=== PATIENT | male | born 1975 | race Hispanic/Latino ===

== ENCOUNTER 2017-02-05 21:42 | Emergency (ER) | payer SELFPAY ==
[~2017-02-05 21:42] MED LIST: ISOVUE-370 76%-LOCM 1 ML ONE
[2017-02-05] MEDS ORDERED: HYDROmorphone 0.5 MG/0.5 ML SYRINGE ONE (22:15)
[2017-02-05 22:17] LABS: #Basophils 0.1 thou/uL (0.0-0.2); #Eosinphils 0.2 thou/uL (0.0-0.7); #Lymphocytes 3.8 thou/uL (1.20-3.40); #Monocytes 0.8 thou/uL (0.11-0.59); #Neutrophils 5.6 thou/uL (1.40-6.50); %Basophils 0.8 % (0.0-1.0); %Eosinophils 2.1 % (0.0-10.0); %Lymphocytes 35.7 % (21.0-51.0); Hematocrit 46.5 % (42.0-52.0); Mean Platelet Volume 7.2 fL (7.4-10.4); Red Blood Cell (RBC) Count 4.95 mill/uL (4.70-6.10); White Blood Cell (WBC) Count 10.5 thou/uL (4.8-10.8)
[2017-02-05 22:20] LABS: Bilirubin Negative (Negative); Blood, Urine Negative (Negative); Glucose, Urine (Dipstick) Negative (Negative); Ketone, Urine Negative (Negative); Nitrite Negative (Negative); Protein, Urine (Dipstick) Negative (Neg-Trace); Urobilinogen 0.2 mg/dL (0.2-1.0)
[2017-02-05 22:38] LABS: ALT (SGPT) 28 U/L (8-55); AST (SGOT) 26 U/L (5-34); Alkaline Phosphatase 103 U/L (40-150); Anion Gap 12 mmol/L (10-20); BUN (Urea Nitrogen) 8 mg/dL (8.9-20.6); Bilirubin, Total 0.3 mg/dL (0.2-1.2); Calc. Creatinine Clearance 0 mL/min (70-130); Calcium 9.8 mg/dL (7.8-10.44); Carbon Dioxide 26 mmol/L (22-29); Chloride 103 mmol/L (98-107); Estimated GFR-MDRD Greater than 90; Globulin 3.1 g/dL (2.4-3.5); Lipase 28 U/L (8-78); Magnesium 2.6 mg/dL (1.6-2.6); Protein, Total 7.6 g/dL (6.0-8.3)
[2017-02-05 22:46] LABS: Acetaminophen Less than 6.0 mcg/mL (10.0-30.0); Salicylate Less than 8.0 mg/dL (15.0-30.0)
--- NOTE | 2017-02-05 22:50 | CT ---
CT ABDOMEN AND PELVIS WITH CONTRAST: Date: 02/05/17 HISTORY: Pancreatitis. COMPARISON: CT abdomen and pelvis with contrast dated 07/21/12. FINDINGS: Lung bases are clear. No pericardial effusion. There are a few calcifications of the pancreatic tail. Atrophy of the pancreatic tail is similar. No peripancreatic stranding. The liver, gallbladder, spleen, and kidneys are unremarkable. Too small to characterize hypodensity i nterpolar left kidney. No dilated loops of large or small bowel. The appendix is visualized and is normal. Aorta is nonaneur ysmal. Skeleton is unremarkable. IMPRESSION: 1. No findings to suggest pancreatitis. 2. No acute inflammatory process in abdomen or pelvis. 3. Normal appendix. 4. Calcifications of pancreatic tail with mild peripheral atrophy are similar, likely sequela of old episodes of pancreatitis. POS: [facility]
[2017-02-06] MEDS ORDERED: HYDROmorphone 0.5 MG/0.5 ML SYRINGE ONE (00:06)
== END 2017-02-06 00:15 | disposition home or self-care (01) ==
LOC: ERS 21:42
DX: K86.1 Other chronic pancreatitis (principal); F31.9 Bipolar disorder, unspecified; F41.9 Anxiety disorder, unspecified; F17.210 Nicotine dependence, cigarettes, uncomplicated; G47.00 Insomnia, unspecified; I10 Essential (primary) hypertension; Z79.899 Other long term (current) drug therapy
CPT/HCPCS: 36415; 74177; 80053; 80307; 81003; 82248; 83690; 83735; 85025; 96361; 96374; 96376; 99406; J1170

== ENCOUNTER 2017-03-15 11:15 | Emergency (ER) | payer SELFPAY ==
[2017-03-15 11:43] LABS: #Basophils 0.1 thou/uL (0.0-0.2); #Eosinphils 0.1 thou/uL (0.0-0.7); #Lymphocytes 2.2 thou/uL (1.20-3.40); #Monocytes 0.6 thou/uL (0.11-0.59); %Basophils 0.5 % (0.0-1.0); %Eosinophils 0.8 % (0.0-10.0); %Lymphocytes 22.1 % (21.0-51.0); %Monocytes 6.2 % (0.0-10.0); Hematocrit 48.4 % (42.0-52.0); Mean Platelet Volume 6.7 fL (7.4-10.4); Red Blood Cell (RBC) Count 5.07 mill/uL (4.70-6.10); White Blood Cell (WBC) Count 9.9 thou/uL (4.8-10.8)
[2017-03-15 11:59] LABS: Acetaminophen Less than 6.0 mcg/mL (10.0-30.0); Salicylate Less than 8.0 mg/dL (15.0-30.0)
[2017-03-15 12:01] LABS: ALT (SGPT) 16 U/L (8-55); AST (SGOT) 19 U/L (5-34); Alkaline Phosphatase 100 U/L (40-150); Anion Gap 16 mmol/L (10-20); BUN (Urea Nitrogen) 6 mg/dL (8.9-20.6); Bilirubin, Total 0.7 mg/dL (0.2-1.2); Calc. Creatinine Clearance 0 mL/min (70-130); Calcium 9.7 mg/dL (7.8-10.44); Carbon Dioxide 23 mmol/L (22-29); Chloride 103 mmol/L (98-107); Estimated GFR-MDRD Greater than 90; Protein, Total 7.4 g/dL (6.0-8.3)
[2017-03-15 12:07] LABS: Bilirubin Negative (Negative); Blood, Urine Negative (Negative); Glucose, Urine (Dipstick) Negative (Negative); Ketone, Urine 15 mg/dL (Negative); Nitrite Negative (Negative); Protein, Urine (Dipstick) Negative (Neg-Trace)
[2017-03-15 12:18] LABS: Amphetamine Not Detected (NotDetected); Methadone Not Detected (NotDetected); Methamphetamine Not Detected (NotDetected)
[2017-03-15] MEDS ORDERED: Lorazepam 1 MG TAB ONE (13:04)
[2017-03-15] MEDS ORDERED: cloNIDine 0.1 MG TAB ONE (13:04)
[2017-03-15] MEDS ORDERED: Lisinopril 10 MG TAB ONE ×3 (13:45→14:20)
[2017-03-15] MEDS ORDERED: Ondansetron HCl/PF 4 MG/2 ML Vial ONE (17:39)
[2017-03-15] MEDS ORDERED: Pantoprazole 40 MG VIAL ONE (17:39)
[2017-03-15] MEDS ORDERED: traZODone HCl 50 MG TAB PO SCH (21:00)
[2017-03-15] MEDS ORDERED: Bupropion 150 MG SR TAB PO SCH (21:00)
== END 2017-03-15 17:55 ==
LOC: ERS 11:15
DX: R45.851 Suicidal ideations (principal); I10 Essential (primary) hypertension; F41.9 Anxiety disorder, unspecified; F31.9 Bipolar disorder, unspecified; F17.210 Nicotine dependence, cigarettes, uncomplicated
CPT/HCPCS: 36415; 80053; 80306; 80307; 81003; 84443; 85025; 99285; C9113; J2405

== ENCOUNTER 2017-08-24 14:22 | Emergency (ER) | payer SELFPAY ==
[2017-08-24] MEDS ORDERED: Labetalol HCl 100 MG/20 ML VIAL ONE (16:52)
[2017-08-24 17:06] LABS: #Basophils 0.1 thou/uL (0.0-0.2); #Eosinphils 0.1 thou/uL (0.0-0.7); #Lymphocytes 2.4 thou/uL (1.20-3.40); #Monocytes 0.7 thou/uL (0.11-0.59); #Neutrophils 8.5 thou/uL (1.40-6.50); %Basophils 0.8 % (0.0-1.0); %Eosinophils 0.6 % (0.0-10.0); %Lymphocytes 20.6 % (21.0-51.0); %Monocytes 5.7 % (0.0-10.0); %Neutrophils 72.2 % (42.0-75.0); Hemoglobin 17.3 g/dL (14.0-18.0); Mean Corpuscular HGB CONC 34.4 g/dL (32.0-36.0); Mean Corpuscular Hemoglobin 32.7 pg (27.0-31.0); Mean Corpuscular Volume 95.1 fl (80.0-94.0); Mean Platelet Volume 6.7 fL (7.4-10.4); Platelet Count 412 thou/uL (130-400); RBC Distribution Width 12.1 % (11.5-14.5); Red Blood Cell (RBC) Count 5.29 mill/uL (4.70-6.10); White Blood Cell (WBC) Count 11.8 thou/uL (4.8-10.8)
[2017-08-24 17:28] LABS: ALT (SGPT) 11 U/L (8-55); AST (SGOT) 17 U/L (5-34); Albumin 4.9 g/dL (3.5-5.0); Alkaline Phosphatase 124 U/L (40-150); Anion Gap 16 mmol/L (10-20); BUN (Urea Nitrogen) 11 mg/dL (8.9-20.6); Bilirubin, Total 0.6 mg/dL (0.2-1.2); CK (CPK) 240 U/L (30-200); Calc. Creatinine Clearance 0 mL/min (70-130); Calcium 10.3 mg/dL (7.8-10.44); Carbon Dioxide 26 mmol/L (22-29); Chloride 102 mmol/L (98-107); Estimated GFR-MDRD Greater than 90; Globulin 3.4 g/dL (2.4-3.5); Glucose 93 mg/dL (70-105); Lipase 47 U/L (8-78); Potassium 3.2 mmol/L (3.5-5.1); Protein, Total 8.3 g/dL (6.0-8.3); Sodium 141 mmol/L (136-145)
[2017-08-24 17:33] LABS: Troponin I Less than 0.010 ng/mL (< 0.028)
== END 2017-08-24 18:05 | disposition home or self-care (01) ==
LOC: ERS 14:22
DX: I10 Essential (primary) hypertension (principal); F41.9 Anxiety disorder, unspecified; F31.9 Bipolar disorder, unspecified; G47.00 Insomnia, unspecified; F17.210 Nicotine dependence, cigarettes, uncomplicated; Z79.899 Other long term (current) drug therapy
CPT/HCPCS: 80053; 82550; 82553; 83690; 84484; 85025; 93005; 96374

== ENCOUNTER 2017-09-14 15:09 | Emergency (ER) | payer SELFPAY ==
[2017-09-14] MEDS ORDERED: Acetaminophen/Codeine 30-300mg Tablet ONE (16:12)
== END 2017-09-14 16:21 | disposition home or self-care (01) ==
LOC: ERS 15:09
DX: H60.92 Unspecified otitis externa, left ear (principal); H65.92 Unspecified nonsuppurative otitis media, left ear; I10 Essential (primary) hypertension; F41.9 Anxiety disorder, unspecified; F31.9 Bipolar disorder, unspecified; G47.00 Insomnia, unspecified; F17.210 Nicotine dependence, cigarettes, uncomplicated; Z87.442 Personal history of urinary calculi
CPT/HCPCS: 99282

== ENCOUNTER 2017-12-01 16:30 | Emergency (ER) | payer SELFPAY ==
[2017-12-01] MEDS ORDERED: Ondansetron HCl/PF 4 MG/2 ML Vial ONE (17:12)
[2017-12-01 17:19] LABS: #Basophils 0.1 thou/uL (0.0-0.2); #Eosinphils 0.2 thou/uL (0.0-0.7); #Lymphocytes 2.6 thou/uL (1.20-3.40); #Monocytes 0.6 thou/uL (0.11-0.59); #Neutrophils 5.6 thou/uL (1.40-6.50); %Basophils 0.8 % (0.0-1.0); %Eosinophils 1.7 % (0.0-10.0); %Monocytes 6.7 % (0.0-10.0); %Neutrophils 61.9 % (42.0-75.0); Hemoglobin 15.1 g/dL (14.0-18.0); Mean Corpuscular HGB CONC 33.5 g/dL (32.0-36.0); Mean Corpuscular Hemoglobin 32.4 pg (27.0-31.0); Mean Corpuscular Volume 96.6 fL (78.0-98.0); Mean Platelet Volume 7.2 fL (7.4-10.4); Platelet Count 358 thou/uL (130-400); RBC Distribution Width 12.7 % (11.5-14.5); Red Blood Cell (RBC) Count 4.65 mill/uL (4.70-6.10); White Blood Cell (WBC) Count 9.1 thou/uL (4.8-10.8)
[2017-12-01 17:43] LABS: ALT (SGPT) 10 U/L (8-55); AST (SGOT) 16 U/L (5-34); Albumin 4.2 g/dL (3.5-5.0); Alkaline Phosphatase 93 U/L (40-150); Anion Gap 13 mmol/L (10-20); BUN (Urea Nitrogen) 10 mg/dL (8.9-20.6); Bilirubin, Total 0.5 mg/dL (0.2-1.2); Calc. Creatinine Clearance 0 mL/min (70-130); Calcium 9.1 mg/dL (7.8-10.44); Carbon Dioxide 21 mmol/L (22-29); Chloride 107 mmol/L (98-107); Estimated GFR-MDRD Greater than 90; Globulin 2.7 g/dL (2.4-3.5); Glucose 88 mg/dL (70-105); Lipase 16 U/L (8-78); Protein, Total 6.9 g/dL (6.0-8.3); Sodium 137 mmol/L (136-145)
[2017-12-01] MEDS ORDERED: Nitroglycerin 0.4 MG TAB (25 Tab Bottle) ONE (18:02)
--- NOTE | 2017-12-01 18:05 | ULT ---
ULTRASOUND GALLBLADDER RIGHT UPPER QUADRANT 12/01/17 HISTORY: Abdominal pain. History of pancreatitis. COMPARISON: Study from 2007. TECHNIQUE: Real time parker scale and color evaluation of the right upper quadrant of the abdomen was performed. Liver measures 14.8 cm in length, mildly increased echotexture. Right kidney measures 10.2 x 4.7 x 5. 23 cm. Pancreas is not well seen. Sonographic Graves's sign is negative. Common bile duct is 3 mm. Ga llbladder is normal. IMPRESSION: No evidence for gallbladder pathology. POS: [facility]
[2017-12-01 18:18] LABS: Troponin I Less than 0.010 ng/mL (< 0.028)
--- NOTE | 2017-12-01 18:18 | RAD ---
CHEST ONE VIEW: 12/01/17 HISTORY: Chest pain. COMPARISON: None. FINDINGS: The lungs are clear. No pneumothorax or effusion. The cardiac silhouette and mediastinal contour are within normal limits. Old left clavicular injury. IMPRESSION: No acute intrathoracic abnormality. POS: [facility]
[2017-12-01] MEDS ORDERED: Mag-Al 1200 mg/1200 mg/30 ML UDCUP ONE (18:27)
[2017-12-01] MEDS ORDERED: Lidocaine Viscous Sol 2% 15 ml UD Cup ONE (18:27)
== END 2017-12-01 20:14 | disposition home or self-care (01) ==
LOC: ERS 16:30
DX: K29.70 Gastritis, unspecified, without bleeding (principal); F31.9 Bipolar disorder, unspecified; F41.9 Anxiety disorder, unspecified; G47.00 Insomnia, unspecified; F17.210 Nicotine dependence, cigarettes, uncomplicated; Z71.6 Tobacco abuse counseling
CPT/HCPCS: 36415; 71045; 76705; 80053; 82550; 82553; 83690; 84484; 85025; 93005; 96361; 96374; 96375; 96376; 99406; J2270; J2405

== ENCOUNTER 2018-02-20 09:19 | Emergency (ER) | payer SELFPAY ==
[2018-02-20] MEDS ORDERED: Lidocaine 4% Cream 5 GM TUBE w/ Tegaderm ONE (09:58)
== END 2018-02-20 10:37 | disposition home or self-care (01) ==
LOC: ERS 09:19
DX: H66.42 Suppurative otitis media, unspecified, left ear (principal); I10 Essential (primary) hypertension; F31.9 Bipolar disorder, unspecified; F41.9 Anxiety disorder, unspecified; G47.00 Insomnia, unspecified; F17.210 Nicotine dependence, cigarettes, uncomplicated; Z79.899 Other long term (current) drug therapy; Z87.442 Personal history of urinary calculi
CPT/HCPCS: 69020

== ENCOUNTER 2018-06-29 13:11 | Emergency (ER) | payer SELFPAY ==
[2018-06-29 13:40] LABS: #Basophils 0.1 thou/uL (0.0-0.2); #Eosinphils 0.1 thou/uL (0.0-0.7); #Lymphocytes 3.1 thou/uL (1.20-3.40); #Monocytes 0.9 thou/uL (0.11-0.59); #Neutrophils 9.4 thou/uL (1.40-6.50); %Basophils 0.5 % (0.0-1.0); %Eosinophils 1.1 % (0.0-10.0); %Lymphocytes 22.8 % (21.0-51.0); %Monocytes 6.5 % (0.0-10.0); %Neutrophils 69.1 % (42.0-75.0); Hemoglobin 16.4 g/dL (14.0-18.0); Mean Corpuscular HGB CONC 33.6 g/dL (32.0-36.0); Mean Corpuscular Hemoglobin 31.3 pg (27.0-31.0); Mean Corpuscular Volume 93.1 fL (78.0-98.0); Mean Platelet Volume 6.6 fL (7.4-10.4); Platelet Count 362 thou/uL (130-400); Red Blood Cell (RBC) Count 5.24 mill/uL (4.70-6.10); White Blood Cell (WBC) Count 13.6 thou/uL (4.8-10.8)
[2018-06-29 14:03] LABS: ALT (SGPT) 36 U/L (8-55); AST (SGOT) 21 U/L (5-34); Albumin 4.5 g/dL (3.5-5.0); Alkaline Phosphatase 107 U/L (40-150); Anion Gap 11 mmol/L (10-20); BUN (Urea Nitrogen) 8 mg/dL (8.9-20.6); Bilirubin, Total 0.4 mg/dL (0.2-1.2); Calc. Creatinine Clearance 0 mL/min (70-130); Calcium 9.7 mg/dL (7.8-10.44); Carbon Dioxide 29 mmol/L (22-29); Chloride 103 mmol/L (98-107); Estimated GFR-MDRD Greater than 90; Globulin 2.8 g/dL (2.4-3.5); Glucose 96 mg/dL (70-105); Lipase 26 U/L (8-78); Potassium 3.7 mmol/L (3.5-5.1); Protein, Total 7.3 g/dL (6.0-8.3); Sodium 139 mmol/L (136-145)
[2018-06-29] MEDS ORDERED: Ondansetron ODT 8 MG TAB ONE ×2 (14:57→14:58)
[2018-06-29] MEDS ORDERED: Morphine 4 MG/ML VIAL ONE (14:57)
== END 2018-06-29 15:17 | disposition home or self-care (01) ==
LOC: ERS 13:11
DX: K29.70 Gastritis, unspecified, without bleeding (principal); I10 Essential (primary) hypertension; F31.9 Bipolar disorder, unspecified; F41.9 Anxiety disorder, unspecified; G47.00 Insomnia, unspecified; F17.210 Nicotine dependence, cigarettes, uncomplicated; Z87.442 Personal history of urinary calculi; Z79.899 Other long term (current) drug therapy
CPT/HCPCS: 36415; 80053; 83690; 84484; 85025; 93005; 94760; 96372; J2270

== ENCOUNTER 2021-02-20 15:00 | Emergency (ER) | payer SELFPAY | END 2021-02-20 17:20 | disposition home or self-care (01) | LOC: ERS 15:00 | DX: K04.7 Periapical abscess without sinus (principal); Z76.0 Encounter for issue of repeat prescription; I10 Essential (primary) hypertension; F17.210 Nicotine dependence, cigarettes, uncomplicated | CPT/HCPCS: 41800 ==

== ENCOUNTER 2021-09-14 05:41 | Emergency (ER) | payer SELFPAY ==
[2021-09-14] MEDS ORDERED: Lisinopril 10 MG TAB ONE (06:02)
[2021-09-14] MEDS ORDERED: Sucralfate 1 GM/10 ML UDCUP ONE (06:05)
[2021-09-14 06:51] LABS: #Basophils 0.1 thou/uL (0.0-0.2); #Eosinphils 0.3 thou/uL (0.0-0.7); #Neutrophils 9.5 thou/uL (1.40-6.50); %Basophils 0.7 % (0.0-1.0); %Eosinophils 2.2 % (0.0-10.0); %Lymphocytes 21.4 % (21.0-51.0); %Monocytes 7.4 % (0.0-10.0); %Neutrophils 68.3 % (42.0-75.0); Hemoglobin 17.3 g/dL (14.0-18.0); Mean Corpuscular Hemoglobin 31.3 pg (27.0-31.0); Mean Corpuscular Volume 91.9 fL (78.0-98.0); Mean Platelet Volume 7.4 fL (7.4-10.4); Platelet Count 371 thou/uL (130-400); RBC Distribution Width 12.7 % (11.5-14.5); Red Blood Cell (RBC) Count 5.53 mill/uL (4.70-6.10); White Blood Cell (WBC) Count 13.9 thou/uL (4.8-10.8)
[2021-09-14 06:54] LABS: Bilirubin Negative (Negative); Blood, Urine Negative (Negative); Clarity Clear (Clear); Glucose, Urine (Dipstick) Normal (Negative); Ketone, Urine Negative (Negative); Leukocyte Negative Leu/uL (Negative); Nitrite Negative (Negative); Protein, Urine (Dipstick) 20 mg/dL (Neg-Trace); Specific Gravity, Urine 1.026 (1.002-1.036); Urobilinogen Normal mg/dL (Less than 2); pH, Urine 6.5 (5.0-9.0)
[2021-09-14 07:11] LABS: Amphetamine Detected (NotDetected); Barbiturates Screen Not Detected (NotDetected); Benzodiazepine Screen Not Detected (NotDetected); Cocaine Metabolite Screen Not Detected (NotDetected); Methadone Not Detected (NotDetected); Methamphetamine Detected (NotDetected); Opiate Screen Not Detected (NotDetected); Oxycodone Screen Not Detected (NotDetected); Phencyclidine (PCP) Not Detected (NotDetected); THC/Cannabinoid Screen Detected (NotDetected); Tricyclic Screen Not Detected (NotDetected)
[2021-09-14 07:18] LABS: ALT (SGPT) 20 U/L (8-55); AST (SGOT) 19 U/L (5-34); Albumin 4.3 g/dL (3.5-5.0); Alkaline Phosphatase 120 U/L (40-110); Anion Gap 17 mmol/L (10-20); BUN (Urea Nitrogen) 14 mg/dL (8.9-20.6); Bilirubin, Total 0.3 mg/dL (0.2-1.2); Calc. Creatinine Clearance 0 mL/min (70-130); Calcium 9.6 mg/dL (7.8-10.44); Carbon Dioxide 24 mmol/L (22-29); Chloride 103 mmol/L (98-107); Globulin 2.9 g/dL (2.4-3.5); Glucose 131 mg/dL (70-105); Lipase 14 U/L (8-78); Potassium 3.8 mmol/L (3.5-5.1); Protein, Total 7.2 g/dL (6.0-8.3); Sodium 140 mmol/L (136-145)
== END 2021-09-14 07:16 | disposition left against medical advice (07) ==
LOC: ERS 05:41
DX: R10.11 Right upper quadrant pain (principal); F17.210 Nicotine dependence, cigarettes, uncomplicated; I10 Essential (primary) hypertension; Z79.899 Other long term (current) drug therapy
CPT/HCPCS: 36415; 80053; 80306; 81003; 83690; 85025; 99284

== ENCOUNTER 2021-09-14 07:51 | Emergency (ER) | payer SELFPAY ==
[2021-09-14] MEDS ORDERED: Ketorolac Tromethamine 30 MG/ML VIAL ONE (08:25)
[2021-09-14] MEDS ORDERED: Iopamidol 370 76% 100 ML VIAL ONE (13:06)
== END 2021-09-14 09:14 | disposition left against medical advice (07) ==
LOC: ERS 07:51
DX: R10.11 Right upper quadrant pain (principal); R10.13 Epigastric pain; I10 Essential (primary) hypertension; Z79.899 Other long term (current) drug therapy
CPT/HCPCS: 74177; 96374; J1885; Q9967

== ENCOUNTER 2022-02-03 14:45 | Emergency (ER) | payer SELFPAY ==
[2022-02-03 15:39] LABS: #Eosinphils 0.1 thou/uL (0.0-0.7); #Lymphocytes 2.2 thou/uL (1.20-3.40); #Monocytes 0.8 thou/uL (0.11-0.59); #Neutrophils 12.8 thou/uL (1.40-6.50); %Basophils 0.3 % (0.0-1.0); %Eosinophils 0.7 % (0.0-10.0); %Lymphocytes 13.6 % (21.0-51.0); %Neutrophils 80.4 % (42.0-75.0); Hemoglobin 15.1 g/dL (14.0-18.0); Mean Corpuscular HGB CONC 33.2 g/dL (32.0-36.0); Mean Corpuscular Hemoglobin 30.5 pg (27.0-31.0); Mean Corpuscular Volume 91.9 fl (78.0-98.0); Mean Platelet Volume 7.1 fL (7.4-10.4); Platelet Count 357 10x3/uL (130-400); RBC Distribution Width 12.6 % (11.5-14.5); Red Blood Cell (RBC) Count 4.93 mill/uL (4.70-6.10); White Blood Cell (WBC) Count 15.9 10x3/uL (4.8-10.8)
[2022-02-03] MEDS ORDERED: Ketorolac Tromethamine 30 MG/ML VIAL ONE (16:00)
[2022-02-03] MEDS ORDERED: Morphine 4 MG/ML VIAL ONE (16:00)
[2022-02-03 16:18] LABS: ALT (SGPT) 15 U/L (8-55); AST (SGOT) 17 U/L (5-34); Albumin 4.2 g/dL (3.5-5.0); Alkaline Phosphatase 109 U/L (40-110); Anion Gap 12 mmol/L (10-20); BUN (Urea Nitrogen) 9 mg/dL (8.9-20.6); Bilirubin, Total 0.3 mg/dL (0.2-1.2); Calc. Creatinine Clearance 0 mL/min (70-130); Calcium 9.1 mg/dL (7.8-10.44); Carbon Dioxide 23 mmol/L (22-29); Chloride 101 mmol/L (98-107); Estimated GFR 111; Globulin 2.6 g/dL (2.4-3.5); Glucose 132 mg/dL (70-105); Lipase 47 U/L (8-78); Potassium 3.4 mmol/L (3.5-5.1); Protein, Total 6.8 g/dL (6.0-8.3); Sodium 133 mmol/L (136-145)
== END 2022-02-03 17:09 | disposition home or self-care (01) ==
LOC: ERS 14:45
DX: R16.0 Hepatomegaly, not elsewhere classified (principal); I10 Essential (primary) hypertension; F17.210 Nicotine dependence, cigarettes, uncomplicated; Z79.899 Other long term (current) drug therapy
CPT/HCPCS: 36415; 76705; 80053; 83690; 84484; 85025; 93005; 96374; 96375; J1885; J2270

== ENCOUNTER 2022-04-12 16:41 | Emergency (ER) | payer SELFPAY ==
[2022-04-12] MEDS ORDERED: hydrOXYzine 25 MG TAB ONE (17:36)
[2022-04-12] MEDS ORDERED: Ziprasidone 20 MG CAP ONE (17:37)
[2022-04-12 18:04] LABS: #Basophils 0.1 thou/uL (0.0-0.2); #Eosinphils 0.3 thou/uL (0.0-0.7); #Lymphocytes 2.9 thou/uL (1.20-3.40); #Monocytes 0.8 thou/uL (0.11-0.59); #Neutrophils 4.9 thou/uL (1.40-6.50); %Eosinophils 3.3 % (0.0-10.0); %Lymphocytes 32.2 % (21.0-51.0); %Monocytes 8.4 % (0.0-10.0); %Neutrophils 55.1 % (42.0-75.0); Hemoglobin 14.9 g/dL (14.0-18.0); Mean Corpuscular HGB CONC 34.8 g/dL (32.0-36.0); Mean Corpuscular Hemoglobin 32.4 pg (27.0-31.0); Mean Platelet Volume 6.8 fL (7.4-10.4); Platelet Count 379 10x3/uL (130-400); RBC Distribution Width 12.7 % (11.5-14.5); Red Blood Cell (RBC) Count 4.61 mill/uL (4.70-6.10); White Blood Cell (WBC) Count 8.9 10x3/uL (4.8-10.8)
[2022-04-12 18:40] LABS: ALT (SGPT) 27 U/L (8-55); AST (SGOT) 25 U/L (5-34); Albumin 4.1 g/dL (3.5-5.0); Alkaline Phosphatase 93 U/L (40-110); Anion Gap 14 mmol/L (10-20); BUN (Urea Nitrogen) 17 mg/dL (8.9-20.6); Bilirubin, Total 0.5 mg/dL (0.2-1.2); Calc. Creatinine Clearance 0 mL/min (70-130); Calcium 9.1 mg/dL (7.8-10.44); Carbon Dioxide 26 mmol/L (22-29); Chloride 102 mmol/L (98-107); Estimated GFR 94; Globulin 2.6 g/dL (2.4-3.5); Glucose 95 mg/dL (70-105); Potassium 3.5 mmol/L (3.5-5.1); Protein, Total 6.7 g/dL (6.0-8.3); Sodium 138 mmol/L (136-145)
[2022-04-12 18:45] LABS: Acetaminophen Less than 10.0 mcg/mL (10.0-30.0); Alcohol Less than 10 mg/dL (Less than 10); Salicylate Less than 8.0 mg/dL (15.0-30.0)
[2022-04-12 19:51] LABS: SARS-CoV-2 NAA Rapid Test Not Detected (NotDetected)
[2022-04-13 03:22] LABS: Bilirubin Negative (Negative); Blood, Urine Negative (Negative); Clarity Clear (Clear); Glucose, Urine (Dipstick) Normal (Negative); Ketone, Urine Negative (Negative); Leukocyte Negative Leu/uL (Negative); Nitrite Negative (Negative); Protein, Urine (Dipstick) Negative (Neg-Trace); Specific Gravity, Urine 1.015 (1.002-1.036); Urobilinogen Normal mg/dL (Less than 2)
[2022-04-13 03:31] LABS: Amphetamine Detected (NotDetected); Barbiturates Screen Not Detected (NotDetected); Benzodiazepine Screen Not Detected (NotDetected); Cocaine Metabolite Screen Not Detected (NotDetected); Methadone Not Detected (NotDetected); Methamphetamine Detected (NotDetected); Opiate Screen Not Detected (NotDetected); Oxycodone Screen Not Detected (NotDetected); Phencyclidine (PCP) Not Detected (NotDetected); THC/Cannabinoid Screen Detected (NotDetected); Tricyclic Screen Not Detected (NotDetected)
== END 2022-04-13 15:03 ==
LOC: ERS 16:41
DX: R45.851 Suicidal ideations (principal); F19.10 Other psychoactive substance abuse, uncomplicated; I10 Essential (primary) hypertension; F17.210 Nicotine dependence, cigarettes, uncomplicated; Z79.899 Other long term (current) drug therapy; Z20.822 Contact with and (suspected) exposure to COVID-19
CPT/HCPCS: 36415; 80053; 80306; 80307; 81003; 84443; 85025; 93005; U0002

== ENCOUNTER 2022-05-30 20:08 | Emergency (ER) | payer SELFPAY ==
[2022-05-30 20:38] LABS: #Lymphocytes 2.2 thou/uL (1.20-3.40); #Monocytes 0.8 thou/uL (0.11-0.59); #Neutrophils 8.5 thou/uL (1.40-6.50); %Basophils 0.4 % (0.0-1.0); %Eosinophils 0.4 % (0.0-10.0); %Lymphocytes 19.2 % (21.0-51.0); %Monocytes 6.6 % (0.0-10.0); %Neutrophils 73.5 % (42.0-75.0); Hemoglobin 15.4 g/dL (14.0-18.0); Mean Corpuscular HGB CONC 33.5 g/dL (32.0-36.0); Mean Corpuscular Hemoglobin 31.1 pg (27.0-31.0); Mean Corpuscular Volume 92.9 fl (78.0-98.0); Mean Platelet Volume 6.8 fL (7.4-10.4); Platelet Count 426 10x3/uL (130-400); RBC Distribution Width 12.7 % (11.5-14.5); Red Blood Cell (RBC) Count 4.96 mill/uL (4.70-6.10); White Blood Cell (WBC) Count 11.6 10x3/uL (4.8-10.8)
[2022-05-30 21:07] LABS: ALT (SGPT) 23 U/L (8-55); AST (SGOT) 20 U/L (5-34); Acetaminophen Less than 10.0 mcg/mL (10.0-30.0); Albumin 4.4 g/dL (3.5-5.0); Alcohol Less than 10 mg/dL (Less than 10); Alkaline Phosphatase 115 U/L (40-110); Anion Gap 13 mmol/L (10-20); BUN (Urea Nitrogen) 8 mg/dL (8.9-20.6); Bilirubin, Total 0.2 mg/dL (0.2-1.2); CK (CPK) 158 U/L (30-200); Calc. Creatinine Clearance 0 mL/min (70-130); Calcium 9.1 mg/dL (7.8-10.44); Carbon Dioxide 23 mmol/L (22-29); Chloride 103 mmol/L (98-107); Estimated GFR 109; Globulin 2.8 g/dL (2.4-3.5); Glucose 113 mg/dL (70-105); Potassium 3.4 mmol/L (3.5-5.1); Protein, Total 7.2 g/dL (6.0-8.3); Salicylate Less than 8.0 mg/dL (15.0-30.0); Sodium 136 mmol/L (136-145)
[2022-05-30 21:20] LABS: Amphetamine Detected (NotDetected); Barbiturates Screen Not Detected (NotDetected); Benzodiazepine Screen Not Detected (NotDetected); Cocaine Metabolite Screen Detected (NotDetected); Methadone Not Detected (NotDetected); Methamphetamine Detected (NotDetected); Opiate Screen Not Detected (NotDetected); Oxycodone Screen Not Detected (NotDetected); Phencyclidine (PCP) Not Detected (NotDetected); THC/Cannabinoid Screen Detected (NotDetected); Tricyclic Screen Not Detected (NotDetected)
[2022-05-30 21:35] LABS: Bilirubin Negative (Negative); Blood, Urine Negative (Negative); Clarity Turbid (Clear); Glucose, Urine (Dipstick) 70 mg/dL (Negative); Ketone, Urine Negative (Negative); Leukocyte Negative Leu/uL (Negative); Nitrite Negative (Negative); Protein, Urine (Dipstick) 50 mg/dL (Neg-Trace); Specific Gravity, Urine 1.017 (1.002-1.036); Urobilinogen Normal mg/dL (Less than 2)
[2022-05-30 21:36] LABS: Bacteria/HPF None Seen HPF (None Seen); RBC/HPF 0-3 HPF (0-3); Sperm/HPF 1+ HPF (None Seen); Squamous Epithelial None Seen HPF (0-3); WBC/HPF 0-3 HPF (0-3)
[2022-05-30] MEDS ORDERED: Lisinopril 10 MG TAB ONE (21:57)
[2022-05-30] MEDS ORDERED: cloNIDine 0.1 MG TAB ONE (21:57)
[2022-05-30] MEDS ORDERED: Nicotine 14 MG PATCH ONE (23:21)
[2022-05-31] MEDS ORDERED: Polyethylene Glycol 3350 17 GM Packet PO SCH (02:30)
[2022-05-31] MEDS ORDERED: traZODone HCl 50 MG TAB ONE (03:54)
[2022-05-31] MEDS ORDERED: Doxepin HCl 25 MG CAP PO SCH (06:30)
[2022-05-31] MEDS ORDERED: Lisinopril 10 MG TAB ONE (06:55)
[2022-05-31] MEDS ORDERED: busPIRone HCl 5 MG TAB PO SCH (09:00)
[2022-05-31] MEDS ORDERED: Lithium Carbonate 150 MG CAP PO SCH (09:00)
[2022-05-31] MEDS ORDERED: Aripiprazole 10 MG TAB PO SCH (09:00)
== END 2022-05-31 13:21 ==
LOC: ERS 20:08
DX: R45.851 Suicidal ideations (principal); F31.9 Bipolar disorder, unspecified; I10 Essential (primary) hypertension; F19.19 Other psychoactive substance abuse with unspecified psychoactive substance-induced disorder; D72.829 Elevated white blood cell count, unspecified; F17.210 Nicotine dependence, cigarettes, uncomplicated; Z79.899 Other long term (current) drug therapy
CPT/HCPCS: 36415; 80053; 80178; 80306; 80307; 81003; 81015; 82550; 84484; 85025; 93005

== ENCOUNTER 2022-09-07 15:14 | Emergency (ER) | payer SELFPAY | END 2022-09-07 15:53 | disposition left against medical advice (07) | LOC: ERS 15:14 | DX: Z53.21 Procedure and treatment not carried out due to patient leaving prior to being seen by health care provider (principal) ==

== ENCOUNTER 2022-09-19 19:23 | Emergency (ER) | payer SELFPAY ==
[2022-09-19 20:01] LABS: #Basophils 0.1 thou/uL (0.0-0.2); #Eosinphils 0.1 thou/uL (0.0-0.7); #Monocytes 0.7 thou/uL (0.11-0.59); #Neutrophils 8.5 thou/uL (1.40-6.50); %Basophils 0.4 % (0.0-1.0); %Eosinophils 0.9 % (0.0-10.0); %Lymphocytes 16.8 % (21.0-51.0); %Monocytes 6.2 % (0.0-10.0); %Neutrophils 75.3 % (42.0-75.0); Hemoglobin 12.8 g/dL (14.0-18.0); Mean Corpuscular HGB CONC 34.5 g/dL (32.0-36.0); Mean Corpuscular Volume 89.8 fl (78.0-98.0); Platelet Count 392 10x3/uL (130-400); RBC Distribution Width 14.2 % (11.5-14.5); Red Blood Cell (RBC) Count 4.13 mill/uL (4.70-6.10); White Blood Cell (WBC) Count 11.3 10x3/uL (4.8-10.8)
[2022-09-19] MEDS ORDERED: Lisinopril 10 MG TAB ONE (20:01)
[2022-09-19] MEDS ORDERED: risperiDONE 1 MG TAB ONE (20:01)
[2022-09-19 20:21] LABS: Amphetamine Not Detected (NotDetected); Barbiturates Screen Not Detected (NotDetected); Benzodiazepine Screen Not Detected (NotDetected); Cocaine Metabolite Screen Detected (NotDetected); Methadone Not Detected (NotDetected); Methamphetamine Not Detected (NotDetected); Opiate Screen Not Detected (NotDetected); Oxycodone Screen Not Detected (NotDetected); Phencyclidine (PCP) Detected (NotDetected); THC/Cannabinoid Screen Detected (NotDetected); Tricyclic Screen Not Detected (NotDetected)
[2022-09-19 20:23] LABS: ALT (SGPT) 10 U/L (8-55); AST (SGOT) 14 U/L (5-34); Albumin 4.3 g/dL (3.5-5.0); Alkaline Phosphatase 98 U/L (40-110); Anion Gap 13 mmol/L (10-20); BUN (Urea Nitrogen) 14 mg/dL (8.9-20.6); Bilirubin, Total 0.2 mg/dL (0.2-1.2); Calc. Creatinine Clearance 0 mL/min (70-130); Calcium 9.2 mg/dL (7.8-10.44); Carbon Dioxide 26 mmol/L (22-29); Chloride 109 mmol/L (98-107); Estimated GFR 109; Globulin 2.7 g/dL (2.4-3.5); Glucose 115 mg/dL (70-105); Potassium 3.5 mmol/L (3.5-5.1); Sodium 144 mmol/L (136-145)
[2022-09-19 20:29] LABS: Acetaminophen Less than 10 mcg/mL (10.0-30.0); Alcohol Less than 10.0 mg/dL (Less than 10); Salicylate Less than 8.0 mg/dL (15.0-30.0)
[2022-09-19] MEDS ORDERED: hydrALAZINE 25 MG TAB ONE (23:08)
[2022-09-19] MEDS ORDERED: hydrALAZINE 20 MG/ML VIAL ONE (23:08)
[2022-09-20] MEDS ORDERED: QUEtiapine 100 MG TAB PO SCH (06:00)
[2022-09-20] MEDS ORDERED: Aripiprazole 10 MG TAB PO SCH ×2 (06:00→23:30)
[2022-09-20] MEDS ORDERED: busPIRone HCl 10 MG TAB PO SCH ×2 (06:00→15:30)
[2022-09-20] MEDS ORDERED: Lithium Carbonate 150 MG CAP PO SCH (09:00)
[2022-09-20] MEDS ORDERED: Lisinopril 10 MG TAB ONE (15:09)
[2022-09-20] MEDS ORDERED: Nicotine 14 MG PATCH ONE (15:09)
[2022-09-20] MEDS ORDERED: Doxepin HCl 10 MG CAP PO SCH (23:30)
== END 2022-09-21 12:04 ==
LOC: ERS 19:23
DX: S52.571G Other intraarticular fracture of lower end of right radius, subsequent encounter for closed fracture with delayed healing (principal); R45.851 Suicidal ideations; F19.10 Other psychoactive substance abuse, uncomplicated; I10 Essential (primary) hypertension; D72.829 Elevated white blood cell count, unspecified; Z79.899 Other long term (current) drug therapy
CPT/HCPCS: 36415; 80053; 80306; 80307; 85025; 93005; 96372; J0360

== ENCOUNTER 2022-10-14 17:56 | Emergency (ER) | payer SELFPAY ==
[2022-10-14 18:35] LABS: #Eosinphils 0.1 thou/uL (0.0-0.7); #Monocytes 0.7 thou/uL (0.11-0.59); #Neutrophils 6.8 thou/uL (1.40-6.50); %Basophils 0.3 % (0.0-1.0); %Eosinophils 1.3 % (0.0-10.0); %Lymphocytes 20.5 % (21.0-51.0); %Monocytes 7.3 % (0.0-10.0); %Neutrophils 70.2 % (42.0-75.0); Hemoglobin 12.4 g/dL (14.0-18.0); Mean Corpuscular HGB CONC 35.5 g/dL (32.0-36.0); Mean Corpuscular Hemoglobin 30.5 pg (27.0-31.0); Mean Platelet Volume 9.7 fL (7.4-10.4); Platelet Count 387 10x3/uL (130-400); RBC Distribution Width 12.8 % (11.5-14.5); Red Blood Cell (RBC) Count 4.06 mill/uL (4.70-6.10); White Blood Cell (WBC) Count 9.7 10x3/uL (4.8-10.8)
[2022-10-14 18:59] LABS: Acetaminophen Less than 10 mcg/mL (10.0-30.0); Alcohol Less than 10.0 mg/dL (Less than 10); Salicylate Less than 8.0 mg/dL (15.0-30.0)
[2022-10-14 19:07] LABS: ALT (SGPT) Less than 7 U/L (8-55); AST (SGOT) 11 U/L (5-34); Albumin 3.8 g/dL (3.5-5.0); Alkaline Phosphatase 87 U/L (40-110); Anion Gap 15 mmol/L (10-20); Bilirubin, Total 0.4 mg/dL (0.2-1.2); Calc. Creatinine Clearance 0 mL/min (70-130); Calcium 8.9 mg/dL (7.8-10.44); Carbon Dioxide 26 mmol/L (22-29); Chloride 100 mmol/L (98-107); Estimated GFR 106; Globulin 2.5 g/dL (2.4-3.5); Glucose 113 mg/dL (70-105); Potassium 2.7 mmol/L (3.5-5.1); Protein, Total 6.3 g/dL (6.0-8.3); Sodium 138 mmol/L (136-145)
[2022-10-14 19:27] LABS: BUN (Urea Nitrogen) 8 mg/dL (8.9-20.6)
[2022-10-14] MEDS ORDERED: Potassium Chloride 20 MEQ TAB ONE ×2 (21:11→21:14)
[2022-10-14 21:42] LABS: Bacteria/HPF None Seen HPF (None Seen); Bilirubin Negative (Negative); Blood, Urine Negative (Negative); CAUTI Indications for Culture Dysuria,urgency,freq; Clarity Clear (Clear); Glucose, Urine (Dipstick) Normal (Negative); Ketone, Urine Negative (Negative); Leukocyte Negative Leu/uL (Negative); Nitrite Negative (Negative); Protein, Urine (Dipstick) Negative (Neg-Trace); RBC/HPF 0-3 HPF (0-3); Specific Gravity, Urine 1.011 (1.002-1.036); Squamous Epithelial None Seen HPF (0-3); Urobilinogen Normal mg/dL (Less than 2); WBC/HPF 0-3 HPF (0-3)
[2022-10-14 21:45] LABS: Amphetamine Not Detected (NotDetected); Barbiturates Screen Not Detected (NotDetected); Benzodiazepine Screen Not Detected (NotDetected); Cocaine Metabolite Screen Not Detected (NotDetected); Methadone Not Detected (NotDetected); Methamphetamine Not Detected (NotDetected); Opiate Screen Not Detected (NotDetected); Oxycodone Screen Not Detected (NotDetected); Phencyclidine (PCP) Detected (NotDetected); THC/Cannabinoid Screen Detected (NotDetected); Tricyclic Screen Not Detected (NotDetected)
[2022-10-14 21:46] LABS: Urine Culture Reflex No No
[2022-10-16] MEDS ORDERED: busPIRone HCl 5 MG TAB PO SCH (15:00)
[2022-10-17] MEDS ORDERED: Meloxicam 15 MG TAB PO SCH (09:00)
== END 2022-10-16 12:55 ==
LOC: ERS 17:56
DX: R45.851 Suicidal ideations (principal); I10 Essential (primary) hypertension; Z79.899 Other long term (current) drug therapy
CPT/HCPCS: 36415; 80053; 80178; 80306; 80307; 81001; 84443; 84484; 85025; 99285

== ENCOUNTER 2024-11-19 22:17 | Emergency (ER) | payer OTHER ==
[~2024-11-19 22:17] MED LIST changes: -ISOVUE-370 76%-LOCM 1 ML ONE; +Iopamidol-370 76% 500 ML MDV (1 ML CHARGE) ONE
[2024-11-19 22:59] LABS: #Basophils 0.04 10x3/uL (0.0-0.2); #Eosinophils Less than 0.03 10x3/uL (0.0-0.7); #Monocytes 0.58 10x3/uL (0.11-0.59); #Neutrophils 10.64 10x3/uL (1.40-6.50); %Basophils 0.3 % (0.0-1.0); %Eosinophils 0.1 % (0.0-10.0); %Lymphocytes 8.3 % (21.0-51.0); %Monocytes 4.7 % (0.0-10.0); %Neutrophils 86.2 % (42.0-75.0); Hematocrit 41.4 % (42.0-52.0); Hemoglobin 14.3 g/dL (14.0-18.0); Mean Corpuscular Hemoglobin 30.6 pg (27.0-31.0); Mean Corpuscular Volume 88.7 fL (78.0-98.0); Platelet Count 320 10x3/uL (130-400); Red Blood Cell (RBC) Count 4.67 mill/uL (4.70-6.10); White Blood Cell (WBC) Count 12.35 10x3/uL (4.8-10.8)
[2024-11-19 23:16] LABS: INR-International Normal Ratio 1.1; Prothrombin Time 13.8 sec (12.0-14.7)
[2024-11-19 23:17] LABS: PTT 28.6 sec (22.9-36.1)
[2024-11-19 23:20] LABS: Acetaminophen Less than 10 mcg/mL (Less than 10); Salicylate Less than 8.0 mg/dL (Less than 8.0)
[2024-11-19 23:22] LABS: ALT (SGPT) 37 U/L (Less than 45); AST (SGOT) 33 U/L (11-34); Albumin 4.3 g/dL (3.1-4.5); Alkaline Phosphatase 110 U/L (40-110); Anion Gap 19 mmol/L (10-20); BUN (Urea Nitrogen) 20 mg/dL (8.9-20.6); Bilirubin, Total 0.5 mg/dL (0.3-1.2); CK (CPK) 208 U/L (30-200); Calc. Creatinine Clearance 0 mL/min (70-130); Calcium 9.7 mg/dL (7.8-10.44); Carbon Dioxide 23 mmol/L (22-29); Chloride 106 mmol/L (98-107); Globulin 2.5 g/dL (2.4-3.5); Glucose 152 mg/dL (70-105); Lipase 38.0 U/L (8-78); Potassium 4.2 mmol/L (3.5-5.1); Sodium 144 mmol/L (136-145)
[2024-11-19 23:24] LABS: CRP, High Sensitivity at Bryan 1.01 mg/dL (< or = 0.5)
== END 2024-11-20 02:25 | disposition home or self-care (01) ==
LOC: ERS 22:17
DX: I73.9 Peripheral vascular disease, unspecified (principal); E87.20 Acidosis, unspecified; I10 Essential (primary) hypertension; F17.210 Nicotine dependence, cigarettes, uncomplicated
CPT/HCPCS: 36415; 71045; 75635; 80053; 80307; 82550; 83605; 83690; 85025; 85610; 85730; 86141; 86850; 86900; 86901; 87040; 93005; 96361; 96374; J3010; Q9967

== ENCOUNTER 2024-11-27 11:02 | Day surgery (SDC) | payer OTHER ==
[2024-11-27] MEDS ORDERED: Heparin 5,000 UNITS/ML VIAL ONE (11:22)
[2024-11-27] MEDS ORDERED: PROPOFOL 20 ML ONE (11:40)
[2024-11-27] MEDS ORDERED: fentaNYL PF 100 MCG/2 ML SYRINGE ONE ×2 (11:40→13:03)
[2024-11-27] MEDS ORDERED: hydrALAZINE 20 MG/ML VIAL ONE (13:07)
[2024-11-27] MEDS ORDERED: HYDROmorphone 0.5 MG/0.5 ML SYRINGE ONE (13:46)
[2024-11-27] MEDS ORDERED: Aspirin Chewable 81 MG TAB ONE (14:36)
[2024-11-27] MEDS ORDERED: Lisinopril 20 MG TAB PO SCH (15:15)
== END 2024-11-27 16:38 | disposition home or self-care (01) ==
LOC: CCL 11:02
PROVIDERS: ATTEND Thoracic Surgery (Cardiothoracic Vascular Surgery)
PROC: B400YZZ Plain Radiography of Abdominal Aorta using Other Contrast (ICD-10-PCS; principal; 2024-11-27)
DX: I77.1 Stricture of artery (principal); I10 Essential (primary) hypertension; F17.200 Nicotine dependence, unspecified, uncomplicated; Z88.5 Allergy status to narcotic agent; Z88.0 Allergy status to penicillin; Z79.899 Other long term (current) drug therapy; Z79.82 Long term (current) use of aspirin
CPT/HCPCS: C1725; C1760; C1769; C1876; C1887; J0169; J0360; J0665; J1171; J1644; J2250; J2704; J3010

== ENCOUNTER 2025-03-19 09:21 | Emergency (ER) | payer OTHER ==
[2025-03-19] MEDS ORDERED: Ketorolac Tromethamine 30 MG (1 mL) VIAL ONE (10:05)
== END 2025-03-19 10:25 | disposition home or self-care (01) ==
LOC: ERS 09:21
DX: S39.012A Strain of muscle, fascia and tendon of lower back, initial encounter (principal); I10 Essential (primary) hypertension; F17.210 Nicotine dependence, cigarettes, uncomplicated; X58.XXXA Exposure to other specified factors, initial encounter
CPT/HCPCS: J1885